=== PATIENT | female | born 1980 | race Two or more races ===

== ENCOUNTER 2018-07-18 05:20 | Emergency (ER) | payer BC, OTHER ==
[2018-07-18 05:53] LABS: URINE APPEARANCE CLEAR; URINE BILIRUBIN NEGATIVE (<2.0 mg/dL); URINE COLOR YELLOW; URINE GLUCOSE (UA) NEGATIVE (NEGATIVE); URINE KETONE NEGATIVE (NEGATIVE); URINE LEUK ESTERASE NEGATIVE (NEGATIVE); URINE NITRITE NEGATIVE (NEGATIVE); URINE PROTEIN NEGATIVE (NEGATIVE); URINE UROBILINOGEN NEGATIVE mg/dL (0.2-1.0)
[2018-07-18 05:56] LABS: BASO % 0.6 % (0-2.0); EOS % 1.8 % (0-4.5); HEMATOCRIT 37.7 % (32.4-45.2); LYMPH % 38.3 % (8-40); MCH 27.6 pg (25.7-33.7); MCHC 34.4 g/dl (32.0-36.0); MEAN CELL VOLUME 80.1 fl (80-96); MEAN PLT VOLUME 8.2 fl (7.5-11.1); MONO % 6.4 % (3.8-10.2); NEUT % 52.9 % (42.8-82.8); PLATELET COUNT 279 K/MM3 (134-434); RBC 4.71 M/mm3 (3.60-5.2); RDW 13.5 % (11.6-15.6); WHITE BLOOD COUNT 11.4 K/mm3 (4.0-10.0)
--- NOTE | 2018-07-18 06:09 | PDOC ---
History of Present Illness - General Stated Complaint: VAG BLEED/9 WEEKS Time Seen by Provider: 07/18/18 06:09 History Source: Patient Exam Limitations: No Limitations - History of Present Illness Initial Comments: 07/18/18 06:35 This patient is a 38-year-old female who is otherwise healthy was anything to emergency department with a complaint of vaginal bleeding. She is , 9 weeks by ultrasound done yesterday in Dr. Florian's office. Patient states she is status post her first cycle of IVF. This morning when she went to the bathroom and wiped she noticed a blood clot/ blood on the toilet paper. After she took a shower and wiped again, she saw no bleeding She has been wearing a pad and has not noted any bleeding She denies heavy vaginal bleeding, she denies abdominal pain. She denies chest pain, lightheadedness. She denies dizziness. She denies abdominal cramping. Ultrasound was normal yesterday. PMH: Denies PSH: Cosmetic Medication: Denies ALLERGIES: NKDA Social: Denies alcohol, drug, cigarette use ROS: GENERAL/CONSTITUTIONAL: No: fever, chills, weakness, loss of appetite. HEAD, EYES, EARS, NOSE AND THROAT: No: change in vision, ear pain, discharge, sore throat, throat swelling. CARDIOVASCULAR: No: chest pain, lightheadedness, palpitations, syncope RESPIRATORY: No: cough, shortness of breath, wheezing, hemoptysis, stridor. GASTROINTESTINAL: No: nausea, vomiting, diarrhea, abdominal cramping, rectal bleeding, constipation. GENITOURINARY: VAGINAL BLEEDING No: dysuria, hematuria, frequency, urgency, flank pain. MUSCULOSKELETAL: No: back pain, neck pain, joint pain, muscle swelling or pain SKIN: No: lesions, pallor, rash or easy bruising. NEUROLOGIC: No: headache, vertigo, paresthesias, weakness ENDOCRINE: No: unexplained weight gain or loss HEMATOLOGIC/LYMPHATIC: No: anemia, easy bleeding, swelling nodes. PEL GENERAL: The patient is in no acute distress, tearful. HEAD: Normal EYES: PERRLA, EOMI, sclera anicteric, conjunctiva clear. ENT: Ears normal, nares patent, oropharynx clear without exudates. Moist mucous membranes. NECK: Normal range of motion, supple LUNGS: Breath sounds equal, clear to auscultation bilaterally. No wheezes, and no crackles. HEART:Regular rate and rhythm, normal S1 and S2 without murmur, rub or gallop. ABDOMEN: Soft, nontender, normoactive bowel sounds. No guarding, no rebound. EXTREMITIES: Normal range of motion, no edema. NEUROLOGICAL: Cranial nerves II through XII grossly intact. Normal speech. No focal neurological deficits. MUSCULOSKELETAL: No CVA tenderness SKIN: Warm, Dry, normal turgor, no rashes or lesions noted. 07/18/18 22:26 Past History - Past Medical History Allergies/Adverse Reactions: Allergies Allergy/AdvReac Type Severity Reaction Status Date / Time No Known Drug Allergies Allergy Verified 07/18/18 06:16 Home Medications: Ambulatory Orders Estradiol 2 mg PO TID 07/18/18 Progesterone 50 mg IM DAILY 07/18/18 Anemia: No Asthma: No COPD: No Thyroid Disease: No - Suicide/Smoking/Psychosocial Hx Smoking History: Never smoked Have you smoked in the past 12 months: Yes Hx Alcohol Use: No Drug/Substance Use Hx: No Substance Use Type: None ED Treatment Course - LABORATORY CBC & Chemistry Diagram: 07/18/18 05:36 07/18/18 05:36 - ADDITIONAL ORDERS Additional order review: Laboratory Results 07/18/18 05:26 Urine Color Yellow Urine Appearance Clear Urine pH 6.0 Ur Specific [place] 1.017 Urine Protein Negative Urine Glucose (UA) Negative Urine Ketones Negative Urine Blood 3+ H Urine Nitrite Negative Urine Bilirubin Negative Urine Urobilinogen Negative Ur Leukocyte Esterase Negative 07/18/18 05:36 RBC 4.71 MCV 80.1 MCHC 34.4 RDW 13.5 MPV 8.2 Neutrophils % 52.9 Lymphocytes % 38.3 Monocytes % 6.4 Eosinophils % 1.8 D Basophils % 0.6 Medical Decision Making - Medical Decision Making 07/18/18 06:38 Early Vaginal bleeding/spotting 07/18/18 06:38 Laboratory Tests 07/18/18 07/18/18 05:26 05:36 WBC 11.4 H Hgb 13.0 Hct 37.7 Plt Count 279 Urine Blood 3+ H Urine Nitrite Negative Ur Leukocyte Esterase Negative Urine WBC (Auto) 2 Urine RBC (Auto) 3 US ordered - pending CMP, Blood type - pending Will not do transvaginal but rather pelvic us Signed out to Dr perez *DC/Admit/Observation/Transfer Diagnosis at time of Disposition: Vaginal bleeding in patient at less than 20 weeks gestation - Discharge Dispostion Disposition: HOME Condition at time of disposition: Stable - Referrals Referrals: Vish Florian MD [Staff Physician] - - Patient Instructions Printed Discharge Instructions: DI for Vaginal Bleeding During Additional Instructions: Activity as tolerated. Stay hydrated. Blood tests and an ultrasound were reassuring and show a normal . The discharge was likely a small amount of blood, monitor for persistent discharge or bleeding or cramping. Tylenol 1000 mg every 8 hours as needed. Continue your medications as previously prescribed by your physician. You should follow up with Dr. Florian as soon as possible regarding today's emergency department visit. Return to the emergency department for any new or concerning symptoms, particularly persistent or worsening discharge or bleeding, significant cramping , fevers or chills. - Post Discharge Activity
[2018-07-18 06:10] LABS: EPI CELLS RARE /HPF (FEW); URINE MUCUS RARE
[2018-07-18 06:16] VITALS: TEMP 98.3; BMI 26.6
[2018-07-18 08:06] LABS: ALBUMIN 3.6 g/dl (3.4-5.0); ALK PHOS 47 U/L (45-117); ANION GAP 11 MMOL/L (8-16); BILIRUBIN,TOTAL 0.4 mg/dL (0.2-1); BLOOD UREA NITROGEN 9 mg/dL (7-18); CALCIUM 8.9 mg/dL (8.5-10.1); CHLORIDE 106 mmol/L (98-107); CO2 23 mmol/L (21-32); CREATININE 0.6 mg/dL (0.55-1.3); GLUCOSE,RANDOM 87 mg/dL (74-106); POTASSIUM 4.4 mmol/L (3.5-5.1); SGOT/AST 16 U/L (15-37); SGPT/ALT 24 U/L (13-61); SODIUM 140 mmol/L (136-145); TOT PROT 7.4 g/dl (6.4-8.2)
--- NOTE | 2018-07-18 09:58 | PDOC ---
*Physical Exam - Vital Signs Last Vital Signs Temp Pulse Resp BP Pulse Ox 98.3 F 81 18 121/86 99 07/18/18 05:20 07/18/18 05:20 07/18/18 05:20 07/18/18 05:20 07/18/18 05:20 - Physical Exam Comments: 07/18/18 09:53 Vital signs stable Seated comfortably without cramps or pain Soft/nontender/nondistended, no CVA tenderness <Sumeet Hunter - Last Filed: 07/18/18 09:53> - Vital Signs Last Vital Signs Temp Pulse Resp BP Pulse Ox 98.3 F 81 18 121/86 99 07/18/18 05:20 07/18/18 05:20 07/18/18 05:20 07/18/18 05:20 07/18/18 05:20 <Sherry Lizarraga - Last Filed: 07/18/18 10:37> ED Treatment Course - LABORATORY CBC & Chemistry Diagram: 07/18/18 05:36 07/18/18 05:36 - ADDITIONAL ORDERS Additional order review: Laboratory Results 07/18/18 07/18/18 07/18/18 05:36 05:36 05:26 Sodium 140 Potassium 4.4 Chloride 106 Carbon Dioxide 23 Anion Gap 11 BUN 9 Creatinine 0.6 Creat Clearance w eGFR > 60 Random Glucose 87 Calcium 8.9 Total Bilirubin 0.4 AST 16 ALT 24 Alkaline Phosphatase 47 Total Protein 7.4 Albumin 3.6 Beta HCG, Quant 13643.9 Urine Color Yellow Urine Appearance Clear Urine pH 6.0 Ur Specific [place] 1.017 Urine Protein Negative Urine Glucose (UA) Negative Urine Ketones Negative Urine Blood 3+ H Urine Nitrite Negative Urine Bilirubin Negative Urine Urobilinogen Negative Ur Leukocyte Esterase Negative Urine WBC (Auto) 2 Urine RBC (Auto) 3 Ur Epithelial Cells Rare Urine Mucus Rare Blood Type B POSITIVE Antibody Screen Negative 07/18/18 05:36 RBC 4.71 MCV 80.1 MCHC 34.4 RDW 13.5 MPV 8.2 Neutrophils % 52.9 Lymphocytes % 38.3 Monocytes % 6.4 Eosinophils % 1.8 D Basophils % 0.6 <Sumeet Hunter - Last Filed: 07/18/18 09:53> - LABORATORY CBC & Chemistry Diagram: 07/18/18 05:36 07/18/18 05:36 - ADDITIONAL ORDERS Additional order review: Laboratory Results 07/18/18 07/18/18 07/18/18 05:36 05:36 05:26 Sodium 140 Potassium 4.4 Chloride 106 Carbon Dioxide 23 Anion Gap 11 BUN 9 Creatinine 0.6 Creat Clearance w eGFR > 60 Random Glucose 87 Calcium 8.9 Total Bilirubin 0.4 AST 16 ALT 24 Alkaline Phosphatase 47 Total Protein 7.4 Albumin 3.6 Beta HCG, Quant 96000.9 Urine Color Yellow Urine Appearance Clear Urine pH 6.0 Ur Specific [place] 1.017 Urine Protein Negative Urine Glucose (UA) Negative Urine Ketones Negative Urine Blood 3+ H Urine Nitrite Negative Urine Bilirubin Negative Urine Urobilinogen Negative Ur Leukocyte Esterase Negative Urine WBC (Auto) 2 Urine RBC (Auto) 3 Ur Epithelial Cells Rare Urine Mucus Rare Blood Type B POSITIVE Antibody Screen Negative 07/18/18 05:36 RBC 4.71 MCV 80.1 MCHC 34.4 RDW 13.5 MPV 8.2 Neutrophils % 52.9 Lymphocytes % 38.3 Monocytes % 6.4 Eosinophils % 1.8 D Basophils % 0.6 <Sherry Lizarraga - Last Filed: 07/18/18 10:37> Medical Decision Making - Medical Decision Making 07/18/18 09:53 Received signout on this healthy 38-year-old female at about 9 weeks gestation, product of IVF, status post normal routine ultrasound yesterday with Dr. Florian presents now with small bloody discharge last night, no persisting cramping or spotting or bleeding. Labs within normal limits, including hCG of about 88,000, clear urinalysis, and Rh+ plan at sign out was to follow up ultrasound and disposition accordingly. Ultrasound shows normal 9 week intrauterine with heart rate. No red flags on presentation, likely discharge to prompt follow-up with Dr. Florian, who was contacted. <Sumeet Hunter - Last Filed: 07/18/18 09:53> - Medical Decision Making 07/18/18 10:[address] Florian service at 10:02am and again at 10:35am Documentation prepared by Sherry Lizarraga, acting as medical claims analyst for Sumeet Hunter MD. <Sherry Lizarraga - Last Filed: 07/18/18 10:37> *DC/Admit/Observation/Transfer <ElsaSumeet - Last Filed: 07/18/18 09:53> <Sherry Lizarraga - Last Filed: 07/18/18 10:37> Diagnosis at time of Disposition: Vaginal bleeding in patient at less than 20 weeks gestation - Discharge Dispostion Disposition: HOME Condition at time of disposition: Stable - Referrals Referrals: Vish Florian MD [Staff Physician] - - Patient Instructions Printed Discharge Instructions: DI for Vaginal Bleeding During Additional Instructions: Activity as tolerated. Stay hydrated. Blood tests and an ultrasound were reassuring and show a normal . The discharge was likely a small amount of blood, monitor for persistent discharge or bleeding or cramping. Tylenol 1000 mg every 8 hours as needed. Continue your medications as previously prescribed by your physician. You should follow up with Dr. Florian as soon as possible regarding today's emergency department visit. Return to the emergency department for any new or concerning symptoms, particularly persistent or worsening discharge or bleeding, significant cramping , fevers or chills.
[2018-07-18 10:42] VITALS: BP 104/63; PULSE 65
== END 2018-07-18 10:41 | disposition home or self-care (01) ==
LOC: JER 05:20
DX: O26.891 Other specified pregnancy related conditions, first trimester (principal); O20.8 Other hemorrhage in early pregnancy; Z3A.09 9 weeks gestation of pregnancy
CPT/HCPCS: 36415; 76801-TC; 80053; 81003; 81015; 84702; 85025; 86850; 86900; 86901; 99282-25

== ENCOUNTER 2019-02-09 22:40 | Inpatient (IN) | payer BC, OTHER ==
[2019-02-10] MEDS ORDERED: DEXTROSE 5%-LACTATED RINGERS 1,000 ML IV SCH (00:45)
[2019-02-10] MEDS ORDERED: AMPICILLIN SODIUM 2 GM VIAL ONE (00:56)
[2019-02-10] MEDS ORDERED: PROMETHAZINE HCL 25 MG/1 ML VIAL IVPB ONE (01:00)
[2019-02-10] MEDS ORDERED: BUTORPHANOL TARTRATE 2 MG/ML VIAL IVPB ONE (01:00)
[2019-02-10] MEDS ORDERED: AMPICILLIN - 2 GM in SODIUM CHLORIDE 100 ML IVPB ONE (01:00)
[2019-02-10] MEDS: DEXTROSE 5%-LACTATED RINGERS 1,000 ML IV SCH (01:00)
[2019-02-10] MEDS ORDERED: PROMETHAZINE HCL 25 MG/1 ML VIAL ONE (01:15)
[2019-02-10] MEDS ORDERED: BUTORPHANOL TARTRATE 2 MG/ML VIAL ONE (01:15)
[2019-02-10 01:49] VITALS: BMI 31.3
[2019-02-10 01:58] LABS: BASO % 0.2 % (0-2.0); EOS % 0.1 % (0-4.5); HEMATOCRIT 33.4 % (32.4-45.2); HEMOGLOBIN 11.5 GM/dL (10.7-15.3); LYMPH % 10.4 % (8-40); MCH 28.5 pg (25.7-33.7); MCHC 34.4 g/dl (32.0-36.0); MEAN CELL VOLUME 82.8 fl (80-96); MEAN PLT VOLUME 9.4 fl (7.5-11.1); MONO % 5.8 % (3.8-10.2); NEUT % 83.5 % (42.8-82.8); RBC 4.03 M/mm3 (3.60-5.2); RDW 14.6 % (11.6-15.6); WHITE BLOOD COUNT 21.4 K/mm3 (4.0-10.0)
[2019-02-10 02:13] LABS: PROTHROMBIN TIME (PATIENT) 11.8 SEC (9.7-13.0)
[2019-02-10 02:16] LABS: ACTIVATED PTT 25.6 SECONDS (25.2-36.5)
[2019-02-10 02:26] LABS: BLOOD UREA NITROGEN 4.7 mg/dL (7-18); CALCIUM 8.7 mg/dL (8.5-10.1); CREATININE 0.6 mg/dL (0.55-1.3); POTASSIUM 3.9 mmol/L (3.5-5.1)
[2019-02-10 03:31] LABS: ANISOCYTOSIS 0; HELMET CELLS 0; HOWELL-JOLLY BODIES 0; MACROCYTOSIS 0; OVALOCYTE 0; PLATELET ESTIMATE NORMAL; ROULEAU 0; SICKELED CELLS 0; TARGET CELLS 0; TEAR DROP CELLS 0; TOXIC GRANULATION 0
[2019-02-10 03:41] LABS: PLATELET COUNT 222 K/MM3 (134-434)
[2019-02-10] MEDS ORDERED: AMPICILLIN SODIUM 1 GM VIAL ONE ×5 (04:38→20:59)
[2019-02-10] MEDS: AMPICILLIN - 1 GM in SODIUM CHLORIDE 100 ML IVPB SCH ×3 (05:00→13:00)
[2019-02-10] MEDS: ELECTROLYTE-148 SOLN 1,000 ML IV SCH ×3 (06:00→15:30)
[2019-02-10] MEDS ORDERED: FENTANYL/BUPIVACAINE/NS/PF - PCEA - 50 ML DISP.SYRIN EP ONE ×4 (07:07→19:16)
--- NOTE | 2019-02-10 07:45 | HP ---
Past Medical History - Primary Care Physician PCP:: Humberto Simpson - Admission Chief Complaint: 38 weeks, IVF ,AMA History of Present Illness: 38 , edc by sono 38 weeks, labor, cx 3 cm 80 vx -2 mi , fhr cat 1 , contraction irregular , History Source: Patient Limitations to Obtaining History: No Limitations - Past Medical History ...: 1 ...Para: 0 ...Term: 0 ...: 0 ...Spon : 0 ...Induced : 0 ...Multiple Gestation: 0 ... Weeks Gestation by Dates: 39.0 ...EDC by Dates: 02/17/19 ...EDC by Sono: 02/16/19 Additional OB History: IVF - Past Surgical History Hx Myomectomy: No Hx Transabdominal Cerclage: No - Smoking History Smoking history: Former smoker Have you smoked in the past 12 months: No - Alcohol/Substance Use Hx Alcohol Use: No History of Substance Use: reports: None - Social History Usual Living Arrangement: Yes: With Spouse ADL: Independent History of Recent Travel: No Home Medications - Allergies Allergies/Adverse Reactions: Allergies Allergy/AdvReac Type Severity Reaction Status Date / Time No Known Drug Allergies Allergy Verified 02/09/19 22:56 - Home Medications Home Medications: Ambulatory Orders Tablet 1 tab PO DAILY 02/08/19 Review of Systems - Review of Systems Constitutional: reports: No Symptoms Eyes: reports: No Symptoms HENT: reports: No Symptoms Neck: reports: No Symptoms Cardiovascular: reports: No Symptoms Respiratory: reports: No Symptoms Gastrointestinal: reports: No Symptoms Genitourinary: reports: No Symptoms Breasts: reports: No Symptoms Reported Musculoskeletal: reports: No Symptoms Integumentary: reports: No Symptoms Neurological: reports: No Symptoms Endocrine: reports: No Symptoms Hematology/Lymphatic: reports: No Symptoms Psychiatric: reports: No Symptoms Physical Exam - Maternity Vital Signs: Vital Signs Temperature 98.7 F 02/10/19 04:00 Pulse Rate 71 02/10/19 04:00 Respiratory Rate 20 02/10/19 04:00 Blood Pressure 122/72 02/10/19 04:00 O2 Sat by Pulse Oximetry (%) Constitutional: Yes: Well Nourished, No Distress, Calm Eyes: Yes: WNL, Conjunctiva Clear, EOM Intact HENT: Yes: WNL, Atraumatic, Normocephalic Neck: Yes: WNL, Supple, Trachea Midline Cardiovascular: Yes: WNL, Regular Rate and Rhythm Breast(s): Yes: WNL - Abdominal Exam/OB Fundal Height: 38 Number of Fetuses: Single Presentation: Vertex Contractions: Yes Regularity: Irregular Intensity: Mod/Strong Monitor Mode: External Heart Rate Location: [facility] Category: I Accelerations: Uniform Decelerations: None - Vaginal Exam/OB Vaginal Bleediing: No Speculum Exam: No Dilatation (cm): 3 cm Effacement (%): 80 Amniotic Membrane Status: Intact Presentation: Vertex/Position Station: -2 - Physical Exam Musculoskeletal: Yes: WNL Extremities: Yes: WNL Edema: LLE: Trace, RLE: Trace Deep Tendon Reflex Grade: Normal +2 - Labs Lab Results: CBC, BMP 02/10/19 00:35 02/10/19 00:35 Hemorrhage Risk Assessment - Risk Factors Risk Score: 0 Risk Level: Low Risk Problem List - Problems (1) with 38 completed weeks gestation Code(s): Z3A.38 - 38 WEEKS GESTATION OF (2) Labor established Code(s): IAE0501 - (3) resulting from in vitro fertilization Code(s): O09.819 - SUPRVSN OF PREG RSLT FROM ASSISTED REPRODCTV TECH, UNSP TRI Qualifiers: Trimester: third trimester Qualified Code(s): O09.813 - Supervision of resulting from assisted reproductive technology, third trimester Assessment/Plan plan admit FHM pain managment
[2019-02-10] MEDS ORDERED: ELECTROLYTE-148 SOLN 1,000 ML IV SCH (08:00)
[2019-02-10] MEDS ORDERED: NALOXONE HCL 0.4 MG/ML VIAL IVPUSH PRN (08:40)
[2019-02-10] MEDS ORDERED: FENTANYL/BUPIVACAINE/NS/PF - PCEA - 50 ML DISP.SYRIN EP SCH (08:45)
[2019-02-10] MEDS ORDERED: TUBERCULIN PPD 5 TU/0.1ML SYRINGE (IN PATIENT USE ONLY) ID ONE (10:00)
--- NOTE | 2019-02-10 11:24 | PN ---
Ante-Partal Exam - Subjective Subjective: Patient comfortable s/p epidural Vital Signs: Vital Signs Temperature 98.0 F 02/10/19 10:00 Pulse Rate 80 02/10/19 11:00 Respiratory Rate 18 02/10/19 11:00 Blood Pressure 119/64 02/10/19 11:00 O2 Sat by Pulse Oximetry (%) 100 02/10/19 11:00 Bleeding: No Headache: No Visual changes: No Right upper quadrant pain: No - Contractions Contractions: Yes Regularity: Regular Intensity: Unaware Monitor Mode: External - Exam during Labor Heart Rate: 125 Category: I Monitor Accelerations: Present Monitor Decelerations: None Exam: Vaginal Dilatation (cm): 5 Effacement (%): 80 Amniotic Membrane Status: Ruptured Station: -2 - Intrapartum Hemorrhage Risk Medium Risk Factors: None High Risk Factors: None Risk Score: 0 Risk Level: Low Risk - Assessment/Plan Assessment/Plan: 38 yo active labor 1. Good cervical cahnge will continue to monitor 2. GBS positive, on ampicillin 3. Category IFHT 4. Will proceed with expectant management
[2019-02-10] MEDS ORDERED: OXYTOCIN 20 UNITS in 0.9% NS 20 UNIT/1,000 ML INFUS.BAG IV ONE ×2 (11:53→20:22)
[2019-02-10] MEDS ORDERED: OXYTOCIN 30 UNITS in 0.9% NS 30 UNIT/500 ML INFUS.BAG IVPB SCH (12:00)
--- NOTE | 2019-02-10 16:26 | PN ---
Ante-Partal Exam - Subjective Subjective: Patient comfortable with epidural; mild pressure Vital Signs: Vital Signs Temperature 98.4 F 02/10/19 15:00 Pulse Rate 84 02/10/19 16:00 Respiratory Rate 18 02/10/19 16:00 Blood Pressure 89/48 L 02/10/19 16:00 O2 Sat by Pulse Oximetry (%) 100 02/10/19 16:00 Bleeding: No Headache: No Visual changes: No Right upper quadrant pain: No - Contractions Contractions: Yes Regularity: Regular Intensity: Unaware Monitor Mode: External - Exam during Labor Heart Rate: 150 Variability: Moderate Category: I Monitor Accelerations: Present Monitor Decelerations: None Exam: Vaginal Dilatation (cm): 8 Effacement (%): 100 Amniotic Membrane Status: Ruptured Presentation: Vertex Station: 0 - Intrapartum Hemorrhage Risk Medium Risk Factors: None High Risk Factors: None Risk Score: 0 Risk Level: Low Risk - Assessment/Plan Assessment/Plan: 38 yo active labor 1. Good cervical change, suspect OP position 2. GBS positive, on ampicillin 3. Pain well controlled with epidural 4. Will proceed with expectant management
[2019-02-10] MEDS ORDERED: AMPICILLIN - 1 GM in SODIUM CHLORIDE 100 ML IVPB ONE (16:45)
[2019-02-10] MEDS ORDERED: BUPIVACAINE HCL/PF 0.25% (2.5MG/ML) 10 ML VIAL ONE (16:50)
[2019-02-10] MEDS ORDERED: LIDOCAINE HCL 1% PRESERVATIVE FREE - 30ML VIAL ONE (20:22)
[2019-02-10] MEDS: GENTAMICIN IVPB SCH (20:35)
[2019-02-10] MEDS: WATER IVPB SCH (20:35)
[2019-02-10] MEDS: DEXTROSE 5% IVPB SCH (20:35)
--- NOTE | 2019-02-10 22:30 | PN ---
Delivery - Delivery Vaginal Delivery: No Problems Type of Anesthesia: Epidural Episiotomy/Laceration: Vaginal Extension/lac, 2nd degree EBL (cc): 300 Delivery, Single - Stages of Labor Date 1st Stage Initiatied: 02/09/19 Time 1st Stage Initiated: 17:00 Date 2nd Stage Initiated: 02/10/19 Time 2nd Stage Initiated: 21:05 Date of Delivery: 02/10/19 Time of Delivery: 21:56 Date Placenta Delivered: 02/10/19 Time Placenta Delivered: 22:14 Placenta: Yes: Spontaneous - Condition of Infant Infant Gender: Female Position: Left, OA - 1 Minute Total Score: 8 5 Minutes Total Score: 9 - Feeding Plan Initial Plan: Elected not to breastfeed exclusively throughout hospitalization Remarks - Remarks Remarks: Patient progressed to fully dilated and at 2105 via delivered a viable female in SETH position, APGARs 8,9. Weight and length unknown at this time. Head delivered spontaneously followed by shoulders and body without difficulty. with spontaneous cry and placed on mother's abdomen. Nose and mouth was bulb suctioned. Cord was clamped and cut. Baby handed to waiting NICU staff, present for chorioamniontitis Perineum and vagina examined, a second degree vaginal laceration was noted and repaired in the usual fashion. Placenta was delivered spontaneously and intact. 20 units of pitocin in 1 L IVF was given. All counts correct x 2. Mother and infant stable in LDR. EBL 300cc.
[2019-02-10] MEDS ORDERED: WITCH HAZEL 50% (TUCKS) 40 PAD/JAR PAD TP PRN (22:31)
[2019-02-10] MEDS ORDERED: BENZOCAINE 28 GM HEMORRHOIDAL OINTMENT TP PRN (22:31)
[2019-02-10] MEDS ORDERED: ACETAMINOPHEN 325 MG TABLET (FP) PO PRN (22:31)
[2019-02-10] MEDS ORDERED: BISACODYL 10 MG SUPP.RECT RC PRN (22:31)
[2019-02-10] MEDS ORDERED: METHYLERGONOVINE MALEATE 0.2 MG/1 ML AMP IM PRN (22:31)
[2019-02-10] MEDS ORDERED: IBUPROFEN 600 MG TABLET (FP) PO PRN (22:31)
[2019-02-10] MEDS ORDERED: BENZOCAINE 20% 57 GM BOTTLE TP PRN (22:31)
[2019-02-11] MEDS: OXYTOCIN 20 UNITS in 0.9% NS 20 UNIT/1,000 ML INFUS.BAG IV SCH ×2 (01:30→02:33)
[2019-02-11] MEDS: DEXTROSE 5%-LACTATED RINGERS 1,000 ML IV SCH (01:30)
[2019-02-11] MEDS ORDERED: SODIUM CHLORIDE 100 ML IVPB ONE ×4 (02:29→19:46)
[2019-02-11] MEDS ORDERED: AMPICILLIN SODIUM 2 GM VIAL ONE ×4 (02:29→19:46)
[2019-02-11] MEDS: AMPICILLIN - 2 GM in SODIUM CHLORIDE 100 ML IVPB SCH ×4 (02:34→21:00)
--- NOTE | 2019-02-11 06:29 | PN ---
Post Progress Note - Subjective Subjective: Patient without acute complaints. Reports tolerating oral intake without nausea or vomiting. Ambulating without dizziness. Denies fevers or chills. Pain well controlled with oral pain medication. without difficulty. Passing flatus. Post Day: 1 Type of Delivery: Vital Signs: Vital Signs Temperature 100.1 F H 02/11/19 01:30 Pulse Rate 82 02/11/19 01:30 Respiratory Rate 18 02/11/19 01:30 Blood Pressure 120/70 02/11/19 01:30 O2 Sat by Pulse Oximetry (%) 98 02/10/19 23:30 Breast Exam: Yes: Soft Uterus: Yes: Fundus Firm Abdomen/GI: Yes: Abdomen soft, Passing flatus, Tolerating PO. No: Abdominal Distention, Tender Lochia: Yes: Rubra Lochia, amount: Moderate Extremities: Yes: Calves non-tender, Edema (trace) Perineum: Yes: Laceration Activity: Ambulating - Labs Labs: CBC WBC 21.4 K/mm3 (4.0-10.0) H 02/10/19 00:35 RBC 4.03 M/mm3 (3.60-5.2) 02/10/19 00:35 Hgb 11.5 GM/dL (10.7-15.3) 02/10/19 00:35 Hct 33.4 % (32.4-45.2) 02/10/19 00:35 MCV 82.8 fl (80-96) 02/10/19 00:35 MCH 28.5 pg (25.7-33.7) 02/10/19 00:35 MCHC 34.4 g/dl (32.0-36.0) 02/10/19 00:35 RDW 14.6 % (11.6-15.6) 02/10/19 00:35 Plt Count 222 K/MM3 (134-434) D 02/10/19 00:35 MPV 9.4 fl (7.5-11.1) D 02/10/19 00:35 Absolute Neuts (auto) 17.8 K/mm3 (1.5-8.0) H 02/10/19 00:35 Neutrophils % 83.5 % (42.8-82.8) H D 02/10/19 00:35 Neutrophils % (Manual) 67.0 % (42.8-82.8) 02/10/19 00:35 Band Neutrophils % 14.0 % 02/10/19 00:35 Lymphocytes % 10.4 % (8-40) D 02/10/19 00:35 Lymphocytes % (Manual) 11.0 % (8-40) 02/10/19 00:35 Monocytes % 5.8 % (3.8-10.2) 02/10/19 00:35 Monocytes % (Manual) 5 % (3.8-10.2) 02/10/19 00:35 Eosinophils % 0.1 % (0-4.5) D 02/10/19 00:35 Eosinophils % (Manual) 0.0 % (0-4.5) 02/10/19 00:35 Basophils % 0.2 % (0-2.0) 02/10/19 00:35 Basophils % (Manual) 1.0 % (0-2.0) 02/10/19 00:35 Myelocytes % (Man) 2 % (0-2) 02/10/19 00:35 Promyelocytes % (Man) 0 % (0-2) 02/10/19 00:35 Blast Cells % (Manual) 0 % (0-0) 02/10/19 00:35 Nucleated RBC % 0 % (0-0) 02/10/19 00:35 Metamyelocytes 0 % (0-2) 02/10/19 00:35 Hypochromia 0 02/10/19 00:35 Toxic Granulation 0 02/10/19 00:35 Dohle Bodies 0 02/10/19 00:35 Platelet Estimate Normal 02/10/19 00:35 Polychromasia 0 02/10/19 00:35 Poikilocytosis 0 02/10/19 00:35 Basophilic Stippling 0 02/10/19 00:35 Anisocytosis 0 02/10/19 00:35 Microcytosis 0 02/10/19 00:35 Macrocytosis 0 02/10/19 00:35 Spherocytes 0 02/10/19 00:35 Sickle Cells 0 02/10/19 00:35 Target Cells 0 02/10/19 00:35 Tear Drop Cells 0 02/10/19 00:35 Ovalocytes 0 02/10/19 00:35 Stomatocytes 0 02/10/19 00:35 Helmet Cells 0 02/10/19 00:35 [place] Bodies 0 02/10/19 00:35 Colony Rings 0 02/10/19 00:35 Mery Cells 0 02/10/19 00:35 Acanthocytes (Spur) 0 02/10/19 00:35 Rouleaux 0 02/10/19 00:35 Fragmented RBCs 0 02/10/19 00:35 Schistocytes 0 02/10/19 00:35 Assessment/Plan 38 yo PPD # 1 s/p , chorioamnionitis, on amp/gent, doing well 1. Continue routine postoperative care. 2. Chorioamnionitis - on Amp 2 Q6; Gent once daily dosing (450/day) Plan to continue until 24H afebrile 3. Follow up AM CBC 4. Rh positive status, no rhogam indicated. 5. Encourage ambulation 6. Continue oral pain medication 7. Anticipate discharge home day #2
--- NOTE | 2019-02-11 06:39 | DS ---
Physical Exam-RELATIONS DIRECTOR Vital Signs: Vital Signs Temperature 100.1 F H 02/11/19 01:30 Pulse Rate 82 02/11/19 01:30 Respiratory Rate 18 02/11/19 01:30 Blood Pressure 120/70 02/11/19 01:30 O2 Sat by Pulse Oximetry (%) 98 02/10/19 23:30 Labs: CBC, BMP 02/10/19 00:35 02/10/19 00:35 Delivery - Delivery Vaginal Delivery: No Problems Type of Anesthesia: Epidural Episiotomy/Laceration: Vaginal Extension/lac, 2nd degree EBL (cc): 300 Delivery, Single - Stages of Labor Date 1st Stage Initiatied: 02/09/19 Time 1st Stage Initiated: 17:00 Date 2nd Stage Initiated: 02/10/19 Time 2nd Stage Initiated: 21:05 Date of Delivery: 02/10/19 Time of Delivery: 21:56 Time Placenta Delivered: 22:14 Placenta: Yes: Spontaneous - Condition of Infant Receiving Team Member/Quality Assurance Group Leader Present: Yes Name: Marisel Pal Gender: Female Weight: 7 lb 6 oz Position: Left, OA Total Hours ROM (Hrs/Mins): 21 hours 24 min - 1 Minute Total Score: 8 5 Minutes Total Score: 9 - [place] Feeding Plan Initial Plan: Elected not to breastfeed exclusively throughout hospitalization Discharge Summary Reason For Visit: ADMIT-LABOR Current Active Problems Labor established (Acute) resulting from in vitro fertilization (Acute) Vaginal delivery (Acute) Procedures: Principal: Vaginal Delivery Hospital Course: Patient was admitted in spontaneous labor, given ampicillin for GBS prophylaxis. Started pitocin for labor augmentation. Developed fever, chorioamnionitis diagnosed; added gentamicin to antibiotic regimen Progressed to deliver via a viable male PPD # 1 patient ambulated, voiding, passing gas, tolerating oral intake and with adequate pain control. She fulfilled all criteria for discharge PPD #2 Condition: Good - Instructions Diet, Activity, Other Instructions: Return to the office in 4-6 weeks for visit Physical activity Resume your normal everyday activity as tolerated no heavy lifting or exercise until seen by your surgeon. You may walk unlimited juan m of and climb stairs. You may resume driving the car when you feel safe and comfortable behind the wheel. No sexual activity as instructed. Diet There are no dietary restrictions. Eat healthy, high-fiber foods. Drink 6 to 8 glasses of liquid each day. This will assist in keeping your bowels are regular. Pain management You may take Tylenol or acetaminophen or Ibuprofen (for example, Motrin, Advil etc.) for pain. Call MD for any of the following: Severe pain not relieved by medication Fever of 101 or higher Excessive bleeding or drainage on dressing Inability to urinate Referrals: Vish Florian MD [Staff Physician] - Disposition: HOME - Home Medications Comprehensive Discharge Medication List: Ambulatory Orders Tablet 1 tab PO DAILY 02/08/19
[2019-02-11 07:34] LABS: BASO % 0.2 % (0-2.0); EOS % 0.1 % (0-4.5); HEMATOCRIT 26.6 % (32.4-45.2); HEMOGLOBIN 9.3 GM/dL (10.7-15.3); LYMPH % 10.7 % (8-40); MCH 28.6 pg (25.7-33.7); MEAN CELL VOLUME 81.6 fl (80-96); MEAN PLT VOLUME 9.3 fl (7.5-11.1); MONO % 6.7 % (3.8-10.2); NEUT % 82.3 % (42.8-82.8); RBC 3.26 M/mm3 (3.60-5.2); RDW 14.7 % (11.6-15.6); WHITE BLOOD COUNT 22.7 K/mm3 (4.0-10.0)
[2019-02-11 11:42] LABS: ANISOCYTOSIS 2+; MACROCYTOSIS 0; PLATELET ESTIMATE NORMAL
[2019-02-11 11:44] LABS: PLATELET COUNT 177.4 K/MM3 (134-434)
[2019-02-11] MEDS: WATER IVPB SCH (21:49)
[2019-02-11] MEDS: GENTAMICIN IVPB SCH (21:49)
[2019-02-11] MEDS: DEXTROSE 5% IVPB SCH (21:49)
[2019-02-11] MEDS ORDERED: SENNOSIDES/DOCUSATE COMBO (SENNA PLUS) TABLET (UD) PO PRN (22:00)
[2019-02-12 02:24] VITALS: TEMP 98.1
[2019-02-12 08:57] VITALS: BP 117/79; PULSE 69
--- NOTE | 2019-02-12 10:34 | PN ---
Post Progress Note - Subjective Subjective: Patient without acute complaints. Reports tolerating oral intake without nausea or vomiting. Ambulating without dizziness. Denies fevers or chills. Pain well controlled with oral pain medication. Pumping/breast feeding without issue. Passing flatus, and BM. Post Day: 2 Type of Delivery: Vital Signs: Vital Signs Temperature 98.1 F 02/12/19 08:56 Pulse Rate 69 02/12/19 08:56 Respiratory Rate 20 02/12/19 08:56 Blood Pressure 117/79 02/12/19 08:56 O2 Sat by Pulse Oximetry (%) 98 02/10/19 23:30 Breast Exam: Yes: Soft Uterus: Yes: Fundus Firm, Fundus below umbilicus, Non-tender Abdomen/GI: Yes: Abdomen soft, Passing flatus, Tolerating PO Lochia: Yes: Rubra Lochia, amount: Small Extremities: Yes: Calves non-tender, Edema (trace b/l) Perineum: Yes: Episiotomy, Laceration (repair intact) Activity: Ambulating - Labs Labs: CBC WBC 22.7 K/mm3 (4.0-10.0) H 02/11/19 06:50 RBC 3.26 M/mm3 (3.60-5.2) L 02/11/19 06:50 Hgb 9.3 GM/dL (10.7-15.3) L 02/11/19 06:50 Hct 26.6 % (32.4-45.2) L D 02/11/19 06:50 MCV 81.6 fl (80-96) 02/11/19 06:50 MCH 28.6 pg (25.7-33.7) 02/11/19 06:50 MCHC 35.0 g/dl (32.0-36.0) 02/11/19 06:50 RDW 14.7 % (11.6-15.6) 02/11/19 06:50 Plt Count 177.4 K/MM3 (134-434) D 02/11/19 06:50 MPV 9.3 fl (7.5-11.1) 02/11/19 06:50 Absolute Neuts (auto) 18.7 K/mm3 (1.5-8.0) H 02/11/19 06:50 Neutrophils % 82.3 % (42.8-82.8) 02/11/19 06:50 Neutrophils % (Manual) 77.8 % (42.8-82.8) 02/11/19 06:50 Band Neutrophils % 4.0 % 02/11/19 06:50 Lymphocytes % 10.7 % (8-40) 02/11/19 06:50 Lymphocytes % (Manual) 11.1 % (8-40) 02/11/19 06:50 Monocytes % 6.7 % (3.8-10.2) 02/11/19 06:50 Monocytes % (Manual) 4 % (3.8-10.2) 02/11/19 06:50 Eosinophils % 0.1 % (0-4.5) 02/11/19 06:50 Eosinophils % (Manual) 0.0 % (0-4.5) 02/11/19 06:50 Basophils % 0.2 % (0-2.0) 02/11/19 06:50 Basophils % (Manual) 0.0 % (0-2.0) 02/11/19 06:50 Myelocytes % (Man) 0 % (0-2) D 02/11/19 06:50 Promyelocytes % (Man) 0 % (0-2) 02/11/19 06:50 Blast Cells % (Manual) 0 % (0-0) 02/11/19 06:50 Nucleated RBC % 0 % (0-0) 02/11/19 06:50 Metamyelocytes 0 % (0-2) 02/11/19 06:50 Hypochromia 0 02/11/19 06:50 Toxic Granulation 0 02/10/19 00:35 Dohle Bodies 0 02/10/19 00:35 Platelet Estimate Normal 02/11/19 06:50 Polychromasia 1+ 02/11/19 06:50 Poikilocytosis 0 02/11/19 06:50 Basophilic Stippling 0 02/10/19 00:35 Anisocytosis 2+ 02/11/19 06:50 Microcytosis 1+ 02/11/19 06:50 Macrocytosis 0 02/11/19 06:50 Spherocytes 1+ 02/11/19 06:50 Sickle Cells 0 02/10/19 00:35 Target Cells 0 02/10/19 00:35 Tear Drop Cells 0 02/10/19 00:35 Ovalocytes 0 02/10/19 00:35 Stomatocytes 0 02/10/19 00:35 Helmet Cells 0 02/10/19 00:35 [place] Bodies 0 02/10/19 00:35 [place] Rings 0 02/10/19 00:35 Mery Cells 0 02/10/19 00:35 Acanthocytes (Spur) 0 02/10/19 00:35 [place]leaux 0 02/10/19 00:35 Fragmented RBCs 0 02/10/19 00:35 Schistocytes 0 02/10/19 00:35 Assessment/Plan 38yo P1 s/p , doing well stable, afebrile >24hrs. Normal examination. Asymptomatic for s/sx's of anemia. care instructions reviewed. Continue routine care. Ambulation encouraged Discharge instruction reviewed.
== END 2019-02-12 18:00 | disposition home or self-care (01) | DRG 805 ==
LOC: JDEL 22:40 → JLDR 02-10 → J3W 02-10 23:40
PROVIDERS: ADMIT Obstetrics & Gynecology; ATTEND Obstetrics & Gynecology
PROC: 10E0XZZ Delivery of Products of Conception, External Approach (ICD-10-PCS; principal; 2019-02-10)
PROC: 0KQM0ZZ Repair Perineum Muscle, Open Approach (ICD-10-PCS; 2019-02-10)
PROC: 3E0R3BZ Introduction of Anesthetic Agent into Spinal Canal, Percutaneous Approach (ICD-10-PCS; 2019-02-10)
DX: O99.824 Streptococcus B carrier state complicating childbirth (principal); O41.1230 Chorioamnionitis, third trimester, not applicable or unspecified; Z37.0 Single live birth; O70.1 Second degree perineal laceration during delivery; Z87.891 Personal history of nicotine dependence; Z3A.39 39 weeks gestation of pregnancy
CPT/HCPCS: 36415; 59025; 59409; 80048; 85025; 85610; 85730; 86593; 86850; 86900; 86901; 87389

== ENCOUNTER 2021-03-30 12:13 | Inpatient (IN) | payer BC, OTHER ==
[2021-03-30 13:09] VITALS: BMI 31.3
[2021-03-30] MEDS ORDERED: ONDANSETRON 4 MG/2 ML VIAL IVPUSH PRN (14:28)
[2021-03-30] MEDS ORDERED: morphine SULFATE/PF 0.5 MG/ML (2cc Syringe - QUVA) ONE (14:35)
[2021-03-30] MEDS ORDERED: ELECTROLYTE-148 SOLN 1,000 ML IV SCH (14:45)
[2021-03-30] MEDS ORDERED: ONDANSETRON 4 MG/2 ML VIAL ONE (15:10)
[2021-03-30] MEDS ORDERED: PHENYLEPHRINE HCL 10 MG/1 ML SINGLE DOSE VIAL ONE (15:12)
[2021-03-30] MEDS ORDERED: ceFAZolin SODIUM 1 GM VIAL ONE (15:13)
[2021-03-30 16:13] LABS: CORD BASE EXCESS -4.1 mmol/L (0-2); CORD HCO3 21.9 mmHg (20-29); CORD PCO2 42.9 mmHg (30-78); CORD pH 7.325 (7.14-7.44)
[2021-03-30 16:16] LABS: CORD HCO3 25.5 mmHg (20-29); CORD PCO2 57.7 mmHg (30-78); CORD pH 7.264 (7.14-7.44)
[2021-03-30] MEDS ORDERED: OXYTOCIN 20 UNITS in 0.9% NS 20 UNIT/1,000 ML INFUS.BAG IV ONE (17:05)
[2021-03-30] MEDS ORDERED: oxyCODONE HCL 5 MG TABLET PO PRN (17:23)
[2021-03-30] MEDS ORDERED: WITCH HAZEL 50% (TUCKS) 40 PAD/JAR PAD TP PRN (17:23)
[2021-03-30] MEDS ORDERED: BENZOCAINE 28 GM HEMORRHOIDAL OINTMENT TP PRN (17:23)
[2021-03-30] MEDS ORDERED: BENZOCAINE 20% 57 GM BOTTLE TP PRN (17:23)
[2021-03-30] MEDS ORDERED: IBUPROFEN 800 MG/8 ML IJ IVPB PRN (17:23)
[2021-03-30] MEDS ORDERED: METHYLERGONOVINE MALEATE 0.2 MG/1 ML AMP IM PRN (17:23)
[2021-03-30] MEDS ORDERED: OXYTOCIN 20 UNITS in 0.9% NS 20 UNIT/1,000 ML INFUS.BAG IV SCH (17:30)
[2021-03-31 07:19] LABS: BASO % 0.9 % (0-2.0); EOS % 1.2 % (0-4.5); HEMOGLOBIN 12.2 GM/dL (10.7-15.3); LYMPH % 21.3 % (8-40); MCH 28.6 pg (25.7-33.7); MCHC 35.8 g/dl (32.0-36.0); MEAN PLT VOLUME 8.3 fl (7.5-11.1); MONO % 6.5 % (3.8-10.2); NEUT % 70.1 % (42.8-82.8); PLATELET COUNT 227 10^3/uL (134-434); RBC 4.26 M/mm3 (3.60-5.2); RDW 14.1 % (11.6-15.6); WHITE BLOOD COUNT 13.5 K/mm3 (4.0-10.0)
[2021-03-31] MEDS: ACETAMINOPHEN 325 MG TABLET (FP) PO PRN ×2 (09:32→16:22)
[2021-03-31] MEDS: IBUPROFEN 600 MG TABLET (FP) PO PRN ×2 (09:33→16:22)
[2021-03-31] MEDS: SIMETHICONE 80 MG TAB.CHEW (FP) PO PRN ×2 (09:35→16:23)
[2021-03-31] MEDS: ENOXAPARIN NA (PORCINE) 40 MG/0.4 ML DISP.SYRIN SQ SCH (12:51)
[2021-03-31] MEDS: PRENATAL VITAMINS W/ FOLIC ACID TABLET (FP) PO SCH (12:52)
[2021-03-31] MEDS ORDERED: BISACODYL 10 MG SUPP.RECT RC PRN (17:23)
[2021-04-01] MEDS: SIMETHICONE 80 MG TAB.CHEW (FP) PO PRN ×2 (09:13→22:14)
[2021-04-01] MEDS: ENOXAPARIN NA (PORCINE) 40 MG/0.4 ML DISP.SYRIN SQ SCH (09:13)
[2021-04-01] MEDS: ACETAMINOPHEN 325 MG TABLET (FP) PO PRN ×2 (09:14→22:14)
[2021-04-01] MEDS: IBUPROFEN 600 MG TABLET (FP) PO PRN ×2 (09:14→22:15)
[2021-04-01] MEDS: PRENATAL VITAMINS W/ FOLIC ACID TABLET (FP) PO SCH (09:14)
[2021-04-02 08:36] LABS: BASO % 0.2 % (0-2.0); EOS % 1.6 % (0-4.5); HEMATOCRIT 32.7 % (32.4-45.2); HEMOGLOBIN 11.4 GM/dL (10.7-15.3); LYMPH % 29.5 % (8-40); MCH 28.2 pg (25.7-33.7); MCHC 34.9 g/dl (32.0-36.0); MEAN CELL VOLUME 80.9 fl (80-96); MEAN PLT VOLUME 8.5 fl (7.5-11.1); NEUT % 62.7 % (42.8-82.8); PLATELET COUNT 223 10^3/uL (134-434); RBC 4.05 M/mm3 (3.60-5.2); RDW 14.3 % (11.6-15.6); WHITE BLOOD COUNT 12.2 K/mm3 (4.0-10.0)
[2021-04-02] MEDS: PRENATAL VITAMINS W/ FOLIC ACID TABLET (FP) PO SCH (10:15)
[2021-04-02] MEDS: ENOXAPARIN NA (PORCINE) 40 MG/0.4 ML DISP.SYRIN SQ SCH (10:15)
[2021-04-02 11:54] VITALS: BP 100/64; PULSE 75; TEMP 98.2
== END 2021-04-02 10:40 | disposition home or self-care (01) | DRG 788 ==
LOC: JLDR 12:13 → J3W 17:30
PROVIDERS: ADMIT Obstetrics & Gynecology; ATTEND Pediatrics
PROC: 10D00Z1 Extraction of Products of Conception, Low, Open Approach (ICD-10-PCS; principal; 2021-03-30)
DX: O32.1XX0 Maternal care for breech presentation, not applicable or unspecified (principal); Z3A.39 39 weeks gestation of pregnancy; Z37.0 Single live birth
CPT/HCPCS: 36415; 36600; 82803; 85025; 88307-TC